=== PATIENT | female | born 1990 ===

== ENCOUNTER 2017-12-18 17:37 | Emergency (ER) | payer OTHER ==
--- NOTE | 2017-12-18 18:43 | UC ---
Skin Complaint HPI - HPI Summary HPI Summary: Pt presents with c/o of "on going" skin yeast infection under bilateral breasts. - History of Current Complaint Chief Complaint: UCSkin Time Seen by Provider: 12/18/17 18:01 Stated Complaint: SKIN COMPLAINT Hx Obtained From: Patient ?: No Onset/Duration: Gradual Onset, Lasting Days, Still Present Timing: Constant Onset Severity: Mild Current Severity: Mild Pain Intensity: 0 Location: Discrete Character: Pruritus Aggravating Factor(s): Nothing Alleviating Factor(s): Unknown Associated Signs & Symptoms: Positive: Rash Related History: Possible Reaction to: Latex - Allergy/Home Medications Allergies/Adverse Reactions: Allergies Allergy/AdvReac Type Severity Reaction Status Date / Time No Known Allergies Allergy Verified 12/18/17 18:02 Review of Systems Constitutional: Negative Skin: Rash Eyes: Negative ENT: Negative Respiratory: Negative Cardiovascular: Negative Gastrointestinal: Negative Genitourinary: Negative Motor: Negative Neurovascular: Negative Musculoskeletal: Negative Neurological: Negative Psychological: Negative Is Patient Immunocompromised?: No All Other Systems Reviewed And Are Negative: Yes PMH/Surg Hx/FS Hx/Imm Hx Previously Healthy: Yes - Surgical History Surgical History: None - Family History Known Family History: Positive: Cardiac Disease - Social History Occupation: Employed Full-time Lives: With Family Alcohol Use: Occasionally Substance Use Type: None Smoking Status (MU): Never Smoked Tobacco Have You Smoked in the Last Year: No Physical Exam Triage Information Reviewed: Yes Vital Signs: Initial Vital Signs Temp 98.1 F 12/18/17 17:58 Pulse 60 12/18/17 17:58 Resp 18 12/18/17 17:58 BP 124/85 12/18/17 17:58 Pulse Ox 100 12/18/17 17:58 Eye Exam: Normal ENT Exam: Normal Neck exam: Normal Respiratory Exam: Normal Respiratory: Positive: No respiratory distress Musculoskeletal Exam: Normal Neurological Exam: Normal Psychological Exam: Normal Skin: Positive: rashes - underbilateral breast, pt has powder on both breasts. Course/Dx - Differential Diagnoses - Skin Complaint Differential Diagnoses: Allergic Reaction, Tinea - Diagnoses Provider Diagnoses: tinea. contact dermatitis Discharge - Discharge Plan Condition: Stable Disposition: HOME Prescriptions: Cetirizine* [ZyrTEC 10 MG TAB*] 10 mg PO DAILY #10 tab Fluconazole 100 MG TAB* [Diflucan 100 MG TAB*] 100 mg PO DAILY #7 tab Patient Education Materials: Skin Yeast Infection (ED) Referrals: Alice Duran [Medical Doctor] - Argenis Burroughs MD [Medical Doctor] - As Soon As Possible No Primary Care Phys,NOPCP [Primary Care Provider] -
== END 2017-12-18 18:39 | disposition home or self-care (01) ==
LOC: UCCORT 17:37
DX: B35.9 Dermatophytosis, unspecified (principal); L25.9 Unspecified contact dermatitis, unspecified cause
CPT/HCPCS: 99202; G0463

== ENCOUNTER 2018-02-01 16:41 | Emergency (ER) | payer OTHER ==
[2018-02-01 17:25] VITALS: BP 118/72
--- NOTE | 2018-02-01 17:54 | UC ---
UC General HPI - HPI Summary HPI Summary: pt had a BM today and noted what she thinks may be a worm. brought it in. no travel hx, abdominal pain, diarrhea or bloating. - History of Current Complaint Hx Obtained From: Patient Hx Last Menstrual Period: 01/18/18 Onset/Duration: Sudden Onset Pain Intensity: 0 Aggravating: nothing Alleviating: nothing Associated Signs & Symptoms: Negative: Abdominal Pain, Diarrhea, Fever <Jud Estrella - Last Filed: 02/01/18 17:48> <Laura Patel - Last Filed: 02/01/18 18:41> - History of Current Complaint Chief Complaint: UCGI Stated Complaint: PERSONAL Time Seen by Provider: 02/01/18 17:46 - Allergy/Home Medications Allergies/Adverse Reactions: Allergies Allergy/AdvReac Type Severity Reaction Status Date / Time No Known Allergies Allergy Verified 02/01/18 17:19 Home Medications: Home Medications Ibuprofen TAB* [Advil TAB*] 200 mg PO Q6H PRN 02/01/18 [History Confirmed ] PMH/Surg Hx/FS Hx/Imm Hx Previously Healthy: Yes - Surgical History Surgical History: None - Family History Known Family History: Positive: Cardiac Disease - Social History Occupation: Employed Full-time Lives: With Family Alcohol Use: Occasionally Substance Use Type: None Smoking Status (MU): Never Smoked Tobacco Have You Smoked in the Last Year: No - Immunization History Vaccination Up to Date: Yes <Jud Estrella - Last Filed: 02/01/18 17:48> Review of Systems Constitutional: Negative Skin: Negative Eyes: Negative ENT: Negative Respiratory: Negative Cardiovascular: Negative Gastrointestinal: Negative Genitourinary: Negative Motor: Negative Neurovascular: Negative Musculoskeletal: Negative Neurological: Negative Psychological: Negative Is Patient Immunocompromised?: No All Other Systems Reviewed And Are Negative: Yes <Jud Estrella - Last Filed: 02/01/18 17:48> Physical Exam Triage Information Reviewed: Yes Appearance: Well-Appearing Vital Signs: Initial Vital Signs Temp 98 F 02/01/18 17:20 Pulse 54 02/01/18 17:20 Resp 20 02/01/18 17:20 BP 118/72 02/01/18 17:20 Pulse Ox 99 02/01/18 17:20 Vital Signs Reviewed: Yes Eyes: Positive: Conjunctiva Clear ENT: Positive: Normal ENT inspection Neck: Positive: Supple, Nontender, No Lymphadenopathy Respiratory: Positive: Lungs clear, Normal breath sounds Cardiovascular: Positive: RRR, No Murmur Abdomen Description: Positive: Nontender, No Organomegaly, Soft. Negative: Distended, Guarding Bowel Sounds: Positive: Present Musculoskeletal: Positive: ROM Intact Neurological: Positive: Alert Psychological: Positive: Normal Response To Family, Age Appropriate Behavior Skin Exam: Normal <Jud Estrella - Last Filed: 02/01/18 17:48> Vital Signs: Initial Vital Signs Temp 98 F 02/01/18 17:20 Pulse 54 02/01/18 17:20 Resp 20 02/01/18 17:20 BP 118/72 02/01/18 17:20 Pulse Ox 99 02/01/18 17:20 <Laura Patel - Last Filed: 02/01/18 18:41> Course/Dx - Course Course Of Treatment: pt brought the piece of stool. I can appreciate something white mixed in. the stool is formed and brown. lab consulted. will send for worm identification - Differential Dx - Multi-Symptom Provider Diagnoses: Normal exam. <Jud Estrella - Last Filed: 02/01/18 17:48> Discharge - Sign-Out/Discharge Documenting (check all that apply): Discharge - Billing Disposition and Condition Condition: STABLE Disposition: HOME <Jud Estrella - Last Filed: 02/01/18 17:48> - Billing Disposition and Condition Condition: STABLE Disposition: HOME <Laura Patel - Last Filed: 02/01/18 18:41> - Discharge Plan Condition: Stable Disposition: HOME Referrals: CASSANDRA Dillard [Medical Doctor] - If Needed Additional Instructions: NORMAL EXAM STOOL SENT FOR WORM EVALUATION Attestation Statement User Type: Provider - I was available for consult. This patient was seen by the COURTNEY. The patient was not presented to, seen by, or examined by me. -Chris <Laura Patel - Last Filed: 02/01/18 18:41>
--- NOTE | 2018-02-04 07:39 | UC ---
- Progress Note Progress Note: PLEASE CALL THE PT. NO PARASITE WAS NOTED BY LAB + [facility] NO NEED FOR ANY TREATMENT PT. MAY FOLLOW UP WITH HER PCP IF HAVING ANY SYMPTOMS Discharge - Sign-Out/Discharge Documenting (check all that apply): Discharge - Discharge Plan Condition: Stable Disposition: HOME Referrals: CASSANDRA Dillard [Medical Doctor] - If Needed Additional Instructions: NORMAL EXAM STOOL SENT FOR WORM EVALUATION - Billing Disposition and Condition Condition: STABLE Disposition: HOME
== END 2018-02-01 18:30 | disposition home or self-care (01) ==
LOC: UCCORT 16:41
DX: Z03.89 Encounter for observation for other suspected diseases and conditions ruled out (principal)
CPT/HCPCS: 87177; 87209; 87328; 87329; 99211; G0463